=== PATIENT | male | born 2000 | race Asian ===

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

== ENCOUNTER 2022-05-17 20:05 | Emergency (ER) | payer BC ==
[~2022-05-17] VITALS: Ht 185.4 cm; Wt 97.5 kg
[~2022-05-17 20:05] MED LIST: AMOX-430 PO
--- NOTE | 2022-05-17 20:54 | NUR ---
Patient walked into ER cv/o sorethroat that started 3 days ago.
[2022-05-17] MEDS ORDERED: IBUPROFEN 800 MG TABLET PO ONE (21:00)
[2022-05-17] MEDS ORDERED: IBUPROFEN 800 MG TABLET ONE (21:02)
[2022-05-17] MEDS ORDERED: DEXAMETHASONE 0.5 MG/5 ML LIQ UDC PO ONE (22:45)
[2022-05-17] MEDS ORDERED: predniSONE 10 MG TABLET ONE (22:47)
[2022-05-17] MEDS ORDERED: IBUP-1958 PO (22:51)
--- NOTE | 2022-05-17 22:55 | NUR ---
Patient discharged to home in stable condition. Written and verbal after care instructions given. Patient verbalizes understanding of instructions. Stressed follow up or return to ER for worsening s/s. Pt ambulated out of the ER with steady gait. All belongings with pt.
[2022-05-17 22:56] VITALS: BP 136/78
== END 2022-05-17 22:56 | disposition home or self-care (01) ==
LOC: ER 20:10
DX: J02.9 Acute pharyngitis, unspecified (principal); Z79.2 Long term (current) use of antibiotics
CPT/HCPCS: 86403; A4663; J7512